=== PATIENT | male | born 1960 | race Caucasian/White ===

== ENCOUNTER → 2016-09-03 | Outpatient (CLI) | payer BC ==
--- NOTE | 2016-09-03 12:30 | REP ---
Clinical: Acute bronchitis. Technique: PA and lateral views. Findings: Coarsened pulmonary vascular markings are consistent with chronic reactive airway disease and/or bronchitis. No focal consolidation, effusion, or pneumothorax. Mediastinum and cardiac silhouette normal. Skeletal structures intact. Impression: Coarsened markings suggesting bronchitis. No focal consolidation. Signed by Slade Mc MD 09/03/2016 12:22 P
[2016-09-03 19:49] LABS: BASO % 0.3 % (0.0-1.0); EOS # 0.2 K/mm3 (0.0-0.50); EOS % 1.6 % (0.0-3.0); LARGE UNSTAINED CELL # 0.1 K/mm3 (0.0-0.4); LARGE UNSTAINED CELL % 1.4 % (0.0-4.0); LYMPH # 1.5 K/mm3 (1.5-4.5); LYMPH % 15.8 % (24.0-44.0); MEAN CORPUSCULAR HGB CONC 34.1 g/dl (32.0-36.5); MEAN CORPUSCULAR VOLUME 90.9 fl (80.0-96.0); MONO # 0.7 K/mm3 (0.0-0.8); MONO % 6.9 % (0.0-5.0); NEUTROPHILS % 73.9 % (36.0-66.0); PLATELET COUNT, AUTOMATED 315 k/mm3 (150-450); RED CELL DISTRIBUTION WIDTH 13.1 % (11.5-14.5); WHITE BLOOD COUNT 9.5 K/mm3 (4.0-10.0)
[2016-09-04 10:25] LABS: CONTROL LINE MONO RF C INT CTR LINE PRESENT
== END ==
LOC: M ADAMS 10:20
PROVIDERS: ATTEND Physician Assistant Medical
DX: J20.9 Acute bronchitis, unspecified (principal)

== ENCOUNTER → 2020-06-12 | Outpatient (CLI) | payer BC ==
[~2020-06-12] MED LIST: ATOR1TAB21; BIMA01SOL; LISI-542; OMEP-221; VITATAB73 PO
== END ==
LOC: M LABSMTC 13:58
PROVIDERS: ATTEND Anesthesiology
DX: Z01.812 Encounter for preprocedural laboratory examination (principal); Z20.828 Contact with and (suspected) exposure to other viral communicable diseases
CPT/HCPCS: C9803; U0003

== ENCOUNTER 2020-06-17 09:47 | Day surgery (SDC) | payer BC ==
[~2020-06-17] VITALS: Ht 179.1 cm; Wt 84.8 kg
[~2020-06-17 09:47] MED LIST changes: +NS 1,000 ML IV ONE
[2020-06-17] MEDS ORDERED: LIDOCAINE 2% 100MG/5ML SDV (FOR ANES.) As Ordered ONE (11:59)
[2020-06-17] MEDS ORDERED: propofoL 200 MG/20 ML VIAL As Ordered ONE (11:59)
--- NOTE | 2020-06-17 12:15 | ROOR ---
Patient Name: Elder Maher Procedure Date: 06/17/2020 11:55 AM Date of : 1960 Age: 60 Room: [facility] Gender: Male Note Status: Finalized Procedure: Upper Endoscopy + Biopsies Indications: Heartburn, Exclusion of Morgan's esophagus Providers: Luis A Elizalde MD Referring MD: Matias Colindres MD Requesting Provider: Medicines: Monitored Anesthesia Care Complications: No immediate complications. Procedure: Pre-Anesthesia Assessment: - The heart rate, respiratory rate, oxygen saturations, blood pressure, adequacy of pulmonary ventilation, and response to care were monitored throughout the procedure. The Endoscope was introduced through the mouth, and advanced to the second part of duodenum. The upper GI endoscopy was accomplished without difficulty. The patient tolerated the procedure well. Findings: The Z-line was variable and was found 35 cm from the incisors. Multiple biopsies were obtained with cold forceps for evaluation to rule out Morgan's Esophagus randomly at the gastroesophageal junction. A medium-sized hiatal hernia was present. No other significant abnormalities were identified in a careful examination of the stomach. The exam of the duodenum was otherwise normal. Impression: - Z-line variable, 35 cm from the incisors. - Medium-sized hiatal hernia. - Multiple biopsies were obtained at the gastroesophageal junction. - The examination was otherwise normal. Recommendation: - Patient has a contact number available for emergencies. The signs and symptoms of potential delayed complications were discussed with the patient. Return to normal activities tomorrow. Written discharge instructions were provided to the patient. - High fiber diet. - Discharge patient to home. - Follow an antireflux regimen. - Continue present medications. - Await pathology results. - Telephone GI clinic for pathology results in 1 week. - Return to referring physician. - The findings and recommendations were discussed with the patient. Luis A Elizalde MD Luis A Elizalde MD 06/17/2020 12:14:54 PM Electronically signed by Luis A Elizalde MD Number of Addenda: 0 Note Initiated On: 06/17/2020 11:55 AM Estimated Blood Loss: Estimated blood loss: none.
--- NOTE | 2020-06-17 12:28 | ROOR ---
Patient Name: Elder Maher Procedure Date: 06/17/2020 11:57 AM Date of : 1960 Age: 60 Room: [facility] Gender: Male Note Status: Finalized Procedure: Total Colonoscopy to Cecum + Cold Snare Polypectomy Indications: Screening for colorectal malignant neoplasm Providers: Luis A Elizalde MD Referring MD: Matias Colindres MD Requesting Provider: Medicines: Monitored Anesthesia Care Complications: No immediate complications. Procedure: Pre-Anesthesia Assessment: - The heart rate, respiratory rate, oxygen saturations, blood pressure, adequacy of pulmonary ventilation, and response to care were monitored throughout the procedure. The Colonoscope was introduced through the anus and advanced to the cecum, identified by appendiceal orifice and ileocecal valve. The colonoscopy was performed without difficulty. The patient tolerated the procedure well. The quality of the bowel preparation was excellent. Findings: The perianal and digital rectal examinations were normal. Non-bleeding internal hemorrhoids were found during retroflexion. The hemorrhoids were small and Grade I (internal hemorrhoids that do not prolapse). Multiple small and large-mouthed diverticula were found in the recto-sigmoid colon, sigmoid colon and descending colon. A small polyp was found in the entire colon. The polyp was sessile. The polyp was removed with a cold snare. Resection and retrieval were complete. The exam was otherwise without abnormality on direct and retroflexion views. Impression: - Non-bleeding internal hemorrhoids. - Diverticulosis in the recto-sigmoid colon, in the sigmoid colon and in the descending colon. - One small polyp in the entire colon, removed with a cold snare. Resected and retrieved. - The examination was otherwise normal on direct and retroflexion views. - The exam was otherwise normal to the cecum. Recommendation: - Patient has a contact number available for emergencies. The signs and symptoms of potential delayed complications were discussed with the patient. Return to normal activities tomorrow. Written discharge instructions were provided to the patient. - High fiber diet. - Discharge patient to home. - Continue present medications. - Await pathology results. - Telephone GI clinic for pathology results in 1 week. - Repeat colonoscopy for surveillance based on pathology results. - Return to referring physician. - The findings and recommendations were discussed with the patient. Luis A Elizalde MD Luis A Elizalde MD 06/17/2020 12:28:09 PM Electronically signed by Luis A Elizalde MD Number of Addenda: 0 Note Initiated On: 06/17/2020 11:57 AM Estimated Blood Loss: Estimated blood loss: none.
[2020-06-17 12:50] VITALS: BP 118/78
== END 2020-06-17 13:05 | disposition home or self-care (01) ==
LOC: M OPP 09:47
PROVIDERS: ATTEND Internal Medicine Gastroenterology
DX: Z12.11 Encounter for screening for malignant neoplasm of colon (principal); D12.6 Benign neoplasm of colon, unspecified; K64.0 First degree hemorrhoids; K57.30 Diverticulosis of large intestine without perforation or abscess without bleeding; Z83.71 Family history of colonic polyps; K22.8 Other specified diseases of esophagus; K44.9 Diaphragmatic hernia without obstruction or gangrene; R12 Heartburn; K21.9 Gastro-esophageal reflux disease without esophagitis; Z79.899 Other long term (current) drug therapy; Z87.891 Personal history of nicotine dependence

== ENCOUNTER → 2020-12-24 | Outpatient (CLI) | payer BC, OTHER ==
[~2020-12-24] MED LIST changes: -LISI-542; +LISI-898; -NS 1,000 ML IV ONE
--- NOTE | 2020-12-24 17:01 | ECGEPIP ---
[facility] Test Date: 2020-12-24 Pat Name: VIKA ABEL Department: Room: - Gender: Male Sccm Administrator: PANKAJ : 1960 Requested By: Matty Ireland Order Number: [id number] Reading MD: Blane Vásquez Measurements Intervals [place] Rate: 55 P: 42 [place]: 168 QRS: 19 QRSD: 78 T: 28 QT: 400 QTc: 382 Interpretive Statements Sinus bradycardia otherwise normal Electronically Signed on 12-24-2020 17:00:42 EDT by Blane Vásquez
== END ==
LOC: M EKG 12:20
PROVIDERS: ATTEND Orthopaedic Surgery
DX: Z01.810 Encounter for preprocedural cardiovascular examination (principal)

== ENCOUNTER → 2021-01-21 | Outpatient (CLI) | payer BC ==
[2021-01-21 11:02] LABS: HEMATOCRIT 43.4 % (42.0-52.0); HEMOGLOBIN 14.7 g/dl (13.5-17.5); MEAN CORPUSCULAR HEMOGLOBIN 31.3 pg (27.0-33.0); MEAN CORPUSCULAR HGB CONC 33.9 g/dl (32.0-36.5); MEAN CORPUSCULAR VOLUME 92.5 fl (80.0-96.0); PLATELET COUNT, AUTOMATED 163 10^3/uL (150-450); RED BLOOD COUNT 4.69 10^6/uL (4.30-6.10); WHITE BLOOD COUNT 4.1 10^3/uL (4.0-10.0)
[2021-01-21 11:42] LABS: ALT/SGPT 31 U/L (12-78); BILIRUBIN,TOTAL 0.9 MG/DL (0.2-1.0); BLOOD UREA NITROGEN 20 MG/DL (7-18); CALCIUM LEVEL 9.1 MG/DL (8.8-10.2); CARBON DIOXIDE LEVEL 28 MEQ/L (21-32); CHLORIDE LEVEL 107 MEQ/L (98-107); CHOLESTEROL LEVEL 153 MG/DL (<200); CHOLESTEROL RISK RATIO 2.684 (<5); CREATININE FOR GFR 0.88 MG/DL (0.70-1.30); GLOMERULAR FILTRATION RATE > 60.0 (>49); GLUCOSE, FASTING 83 MG/DL (70-100); HDL CHOLESTEROL 57 MG/DL (>40); LDL CHOLESTEROL 84 MG/DL (<100); NON-HDL-C 96 MG/DL; POTASSIUM SERUM 4.2 MEQ/L (3.5-5.1); SODIUM LEVEL 141 MEQ/L (136-145); TOTAL PROTEIN 6.6 GM/DL (6.4-8.2); TRIGLYCERIDES LEVEL 59 MG/DL (<150)
== END ==
LOC: M PLALAB 09:15
PROVIDERS: ATTEND Family Medicine
DX: Z12.5 Encounter for screening for malignant neoplasm of prostate (principal); I10 Essential (primary) hypertension

== ENCOUNTER 2021-07-02 12:22 | Outpatient (CLI) | payer BC ==
[~2021-07-02] VITALS: Ht 177.8 cm; Wt 86.2 kg
[~2021-07-02 12:22] MED LIST changes: +ALBUTEROL 90 MCG/ACT 8GM HFA INHALER INH PRN; +ALBUTEROL SULFATE 2.5 MG/0.5 ML INH NEB SOLN INH PRN; +EPINEPHrine INJ 1 MG/ML 1ML AMP IM PRN; +NS 1,000 ML IV SCH; +diphenhydrAMINE 50MG/ML VIAL (J1200) IV PRN; +methylPREDNISolone 125MG 2ML VIAL IV PRN
[2021-07-02] MEDS ORDERED: CASIRIVIMAB (REGN10933) 600 MG, IMDEVIMAB (REGN10987) 600 MG in NS 250 ML IV ONE (12:50)
[2021-07-02 13:12] VITALS: BP 123/78
[2021-07-02 13:42] VITALS: BP 117/74
[2021-07-02 14:12] VITALS: BP 133/78
[2021-07-02 15:12] VITALS: BP 136/79
== END 2021-07-02 15:12 | disposition home or self-care (01) ==
LOC: M OPCLI4PR 12:22
PROVIDERS: ATTEND Family Medicine Addiction Medicine
DX: U07.1 COVID-19 (principal)

== ENCOUNTER → 2022-03-14 | Outpatient (CLI) | payer BC ==
[~2022-03-14] MED LIST changes: -ALBUTEROL 90 MCG/ACT 8GM HFA INHALER INH PRN; -ALBUTEROL SULFATE 2.5 MG/0.5 ML INH NEB SOLN INH PRN; -EPINEPHrine INJ 1 MG/ML 1ML AMP IM PRN; -LISI-898; +LISI5TAB11; -NS 1,000 ML IV SCH; -OMEP-221; +OMEP40CA5; -diphenhydrAMINE 50MG/ML VIAL (J1200) IV PRN; -methylPREDNISolone 125MG 2ML VIAL IV PRN
[2022-03-14 14:31] LABS: HEMATOCRIT 47.4 % (42.0-52.0); HEMOGLOBIN 16.1 g/dl (13.5-17.5); MEAN CORPUSCULAR HEMOGLOBIN 31.1 pg (27.0-33.0); MEAN CORPUSCULAR VOLUME 91.7 fl (80.0-96.0); PLATELET COUNT, AUTOMATED 163 10^3/uL (150-450); RED BLOOD COUNT 5.17 10^6/uL (4.30-6.10); WHITE BLOOD COUNT 5.1 10^3/uL (4.0-10.0)
[2022-03-14 15:34] LABS: BLOOD UREA NITROGEN 20 MG/DL (7-18); CHLORIDE LEVEL 110 MEQ/L (98-107); CREATININE FOR GFR 0.92 MG/DL (0.70-1.30); GLOMERULAR FILTRATION RATE > 60.0 (>49); GLUCOSE, FASTING 96 MG/DL (70-100); POTASSIUM SERUM 5.3 MEQ/L (3.5-5.1); SODIUM LEVEL 142 MEQ/L (136-145)
[2022-03-14 15:35] LABS: ALT/SGPT 28 IU/L (0-32); BILIRUBIN,TOTAL 0.4 MG/DL (0.2-1.0); CALCIUM LEVEL 9.5 MG/DL (8.8-10.2); CARBON DIOXIDE LEVEL 28 mmol/L (20-29); CHOLESTEROL LEVEL 157 MG/DL (<200); CHOLESTEROL RISK RATIO 2.962 (<5); HDL CHOLESTEROL 53 MG/DL (>40); NON-HDL-C 104 MG/DL; TOTAL PROTEIN 6.9 GM/DL (6.4-8.2); TRIGLYCERIDES LEVEL 100 MG/DL (<150)
[2022-03-16 12:33] LABS: PROSTATIC SPECIFIC AG MONITOR 1.38 NG/ML (< 4.00)
== END ==
LOC: M PLALAB 09:12
PROVIDERS: ATTEND Family Medicine
DX: Z12.5 Encounter for screening for malignant neoplasm of prostate (principal); I10 Essential (primary) hypertension

== ENCOUNTER → 2023-04-19 | Outpatient (CLI) | payer BC ==
[2023-04-19 15:37] LABS: BASO % 0.9 % (0.0-1.0); EOS # 0.2 10^3/uL (0.0-0.5); HEMATOCRIT 42.6 % (42.0-52.0); HEMOGLOBIN 14.5 g/dl (13.5-17.5); LYMPH # 1.8 10^3/uL (1.5-5.0); LYMPH % 41.8 % (24.0-44.0); MEAN CORPUSCULAR HEMOGLOBIN 31.8 pg (27.0-33.0); MEAN CORPUSCULAR VOLUME 93.4 fl (80.0-96.0); MONO # 0.5 10^3/uL (0.0-0.8); MONO % 11.2 % (2.0-8.0); NEUTROPHILS # 1.8 10^3/uL (1.5-8.5); NEUTROPHILS % 41.9 % (36.0-66.0); PLATELET COUNT, AUTOMATED 169 10^3/uL (150-450); RED BLOOD COUNT 4.56 10^6/uL (4.30-6.10); WHITE BLOOD COUNT 4.3 10^3/uL (4.0-10.0)
[2023-04-19 16:07] LABS: PROSTATIC SPECIFIC AG MONITOR 1.02 NG/ML (< 4.00)
[2023-04-19 16:15] LABS: ALBUMIN 4.1 G/DL (3.2-5.2); ALKALINE PHOSPHATASE 63 U/L (46-116); ALT/SGPT 28 U/L (7.0-40); AST/SGOT 19 U/L (<34); BLOOD UREA NITROGEN 17 MG/DL (9-23); CALCIUM LEVEL 9.5 MG/DL (8.3-10.6); CARBON DIOXIDE LEVEL 30 MMOL/L (20-31); CHLORIDE LEVEL 106 MMOL/L (98-107); CHOLESTEROL LEVEL 140 MG/DL (<200); CHOLESTEROL RISK RATIO 2.79 (<5); CREATININE FOR GFR 0.97 MG/DL (0.70-1.30); GLOMERULAR FILTRATION RATE > 60.0 (>49); GLUCOSE, FASTING 88 MG/DL (74-106); HDL CHOLESTEROL 50.1 MG/DL (>40); LDL CHOLESTEROL 78.3 MG/DL (<100); NON-HDL-C 89.9 MG/DL; POTASSIUM SERUM 5.2 MMOL/L (3.5-5.1); SODIUM LEVEL 142 MMOL/L (136-145); TOTAL PROTEIN 6.7 G/DL (5.7-8.2); TRIGLYCERIDES LEVEL 58 MG/DL (<150)
== END ==
LOC: M PLALAB 10:52
PROVIDERS: ATTEND Family Medicine
DX: Z12.5 Encounter for screening for malignant neoplasm of prostate (principal); I10 Essential (primary) hypertension

== ENCOUNTER 2024-01-10 07:35 | Day surgery (SDC) | payer OTHER ==
[~2024-01-10] VITALS: Ht 177.8 cm; Wt 91.2 kg
[~2024-01-10 07:35] MED LIST changes: -ATOR1TAB21; +ATOR1TAB21 PO; -LISI5TAB11; +LISI5TAB11 PO; -OMEP40CA5; +OMEP40CA5 PO
[2024-01-10] MEDS ORDERED: LIDOCAINE 2% 100MG/5ML SDV (FOR ANES.) As Ordered ONE (08:39)
[2024-01-10] MEDS ORDERED: propofoL 500 MG/50 ML VIAL As Ordered ONE (08:39)
[2024-01-10 08:54] VITALS: TEMP 97.8
[2024-01-10 09:13] VITALS: BP 137/86; O2SAT 98
== END 2024-01-10 09:25 | disposition home or self-care (01) ==
LOC: M OPP 07:35
PROVIDERS: ATTEND Internal Medicine Gastroenterology
DX: Z12.11 Encounter for screening for malignant neoplasm of colon (principal); Z86.010 Personal history of colon polyps; K64.0 First degree hemorrhoids; K57.30 Diverticulosis of large intestine without perforation or abscess without bleeding; Z79.02 Long term (current) use of antithrombotics/antiplatelets; Z79.899 Other long term (current) drug therapy

== ENCOUNTER → 2024-05-14 | Outpatient (CLI) | payer MEDICARE | LOC: M PLAIMG 14:32 | PROVIDERS: ATTEND Family Medicine | DX: M79.671 Pain in right foot (principal) ==

== ENCOUNTER → 2024-05-30 | Outpatient (CLI) | payer MEDICARE ==
[2024-05-30 13:56] LABS: BASO % 0.7 % (0.0-1.0); EOS # 0.1 10^3/uL (0.0-0.5); EOS % 2.6 % (0.0-3.0); HEMATOCRIT 46.2 % (42.0-52.0); LYMPH # 2.2 10^3/uL (1.5-5.0); LYMPH % 40.8 % (24.0-44.0); MEAN CORPUSCULAR HEMOGLOBIN 32.1 pg (27.0-33.0); MEAN CORPUSCULAR HGB CONC 34.6 g/dl (32.0-36.5); MEAN CORPUSCULAR VOLUME 92.8 fl (80.0-96.0); MONO # 0.7 10^3/uL (0.0-0.8); MONO % 12.6 % (2.0-8.0); NEUTROPHILS # 2.4 10^3/uL (1.5-8.5); NEUTROPHILS % 43.1 % (36.0-66.0); PLATELET COUNT, AUTOMATED 167 10^3/uL (150-450); RED BLOOD COUNT 4.98 10^6/uL (4.30-6.10); WHITE BLOOD COUNT 5.5 10^3/uL (4.0-10.0)
[2024-05-30 14:27] LABS: ALKALINE PHOSPHATASE 65 U/L (46-116); ALT/SGPT 45 U/L (7.0-40); AST/SGOT 24 U/L (<34); BILIRUBIN,TOTAL 0.8 MG/DL (0.3-1.2); BLOOD UREA NITROGEN 18 MG/DL (9-23); CALCIUM LEVEL 9.5 MG/DL (8.3-10.6); CARBON DIOXIDE LEVEL 29 MMOL/L (20-31); CHLORIDE LEVEL 106 MMOL/L (98-107); CHOLESTEROL LEVEL 160 MG/DL (<200); CHOLESTEROL RISK RATIO 3.92 (<5); CREATININE FOR GFR 1.03 MG/DL (0.70-1.30); GLOMERULAR FILTRATION RATE > 60.0 (>49); GLUCOSE, FASTING 92 MG/DL (74-106); HDL CHOLESTEROL 40.8 MG/DL (>40); LDL CHOLESTEROL 97.4 MG/DL (<100); NON-HDL-C 119.2 MG/DL; SODIUM LEVEL 141 MMOL/L (136-145); TOTAL PROTEIN 6.7 G/DL (5.7-8.2); TRIGLYCERIDES LEVEL 109 MG/DL (<150)
== END ==
LOC: M PLALAB 10:26
PROVIDERS: ATTEND Family Medicine
DX: I10 Essential (primary) hypertension (principal); R97.20 Elevated prostate specific antigen [PSA]

== ENCOUNTER → 2025-07-07 | Outpatient (CLI) | payer MEDICARE ==
[2025-07-07 16:22] LABS: ALT/SGPT 31.0 U/L (7.0-40); AST/SGOT 24.0 U/L (<34); CALCIUM LEVEL 9.2 MG/DL (8.3-10.6); CARBON DIOXIDE LEVEL 30.0 MMOL/L (20-31); CHLORIDE LEVEL 105.0 MMOL/L (98-107); CHOLESTEROL LEVEL 128.0 MG/DL (<200); CHOLESTEROL RISK RATIO 2.48 (<5); CREATININE FOR GFR 0.95 MG/DL (0.70-1.30); GLOMERULAR FILTRATION RATE 88.3 (>49); LDL CHOLESTEROL 63.4 MG/DL (<100); NON-HDL-C 76.4 MG/DL; POTASSIUM SERUM 4.4 MMOL/L (3.5-5.1); PSA SCREENING 1.06 NG/ML (< 4.00); SODIUM LEVEL 142.0 MMOL/L (136-145); TRIGLYCERIDES LEVEL 65.0 MG/DL (<150)
[2025-07-07 16:23] LABS: BASO # 0.0 10^3/uL (0.0-0.2); BASO % 0.8 % (0.0-1.0); EOS # 0.2 10^3/uL (0.0-0.5); EOS % 2.9 % (0.0-3.0); LYMPH # 1.9 10^3/uL (1.5-5.0); LYMPH % 36.2 % (24.0-44.0); MONO # 0.6 10^3/uL (0.0-0.8); MONO % 11.7 % (2.0-8.0); NEUTROPHILS # 2.5 10^3/uL (1.5-8.5); NEUTROPHILS % 48.4 % (36.0-66.0); PLATELET COUNT, AUTOMATED 200 10^3/uL (150-450)
== END ==
LOC: M PLALAB 12:34
PROVIDERS: ATTEND Family Medicine
DX: Z12.5 Encounter for screening for malignant neoplasm of prostate (principal); E78.00 Pure hypercholesterolemia, unspecified
CPT/HCPCS: 36415; 80053; 80061; 85025; G0103